=== PATIENT | male | born 1990 | race Caucasian/White ===

== ENCOUNTER 2021-09-26 08:43 | Emergency (ER) | payer OTHER ==
[~2021-09-26 08:43] MED LIST: BACLOFEN 10MG T10 MG PO; COLCRYS0.6 MG PO; FLEXERIL10 MG PO; KEFLEX500 MG PO; MEDROL 4MG DOSEP4 MG PO; NAPROXEN500 MG PO; NORCO 5-325 TA1 EACH PO; NORCO 7.5-3251 EACH PO; PREDNISONE 20MG20 MG PO
[2021-09-26 09:11] LABS: BASOPHIL 1.9 % (0-2); HCT 45.1 % (42.0-52.0); HGB 15.5 g/dl (13.2-18.0); LYMPHOCYTE 31.8 % (15-48); MCH 33.1 pg (25.0-31.0); MCHC 34.4 g/dL (32.0-36.0); MCV 96.4 fL (78.0-100.0); MONOCYTE 8.8 % (0-12); MPV 9.6 fL (6.0-9.5); NRBC 0; PLT 273 K/uL (150-400); RBC 4.68 M/uL (4.70-6.00); RDW 12.1 % (11.5-14.0); WBC 8.8 K/uL (4.0-10.5)
[2021-09-26 09:22] LABS: BILIRUBIN NEGATIVE (NEGATIVE); BLOOD NEGATIVE Ery/uL (NEGATIVE); CLARITY CLEAR (CLEAR); COLOR YELLOW (YELLOW); GLUCOSE (U) NORMAL (NORMAL); LEUKOCYTES NEGATIVE Leu/uL (NEGATIVE); NITRITE NEGATIVE (NEGATIVE); PROTEIN NEGATIVE (NEGATIVE); UROBILINOGEN 0.2 mg/dL (0.2-1.0)
[2021-09-26 09:25] LABS: AMPHETAMINES NEGATIVE (NEGATIVE); BARBITURATES NEGATIVE (NEGATIVE); ECSTASY (MDMA) NEGATIVE (NEGATIVE); MARIJUANA (THC) NEGATIVE (NEGATIVE); METHADONE NEGATIVE (NEGATIVE); OPIATES NEGATIVE (NEGATIVE); OXYCODONE NEGATIVE (NEGATIVE)
[2021-09-26 09:37] LABS: ALBUMIN 3.6 g/dL (3.4-5.0); BILIRUBIN - TOTAL 0.5 mg/dL (0.2-1.0); BUN/CREAT RATIO (CALC) 17.9 RATIO; CREATININE 0.84 mg/dL (0.67-1.17); POTASSIUM 4.2 mmol/L (3.5-5.1); TOTAL PROTEIN 7.6 g/dL (6.4-8.2)
[2021-09-26 10:03] LABS: CORONAVIRUS 2019 SARS-COV-2 NEGATIVE (NEGATIVE); INFLUENZA A NAA NEGATIVE (NEGATIVE)
[2021-09-26] MEDS ORDERED: OMEPRAZOLE40 MG PO (10:59)
[2021-09-26] MEDS ORDERED: CARAFATE1 GM PO (10:59)
== END 2021-09-26 11:15 | disposition home or self-care (01) ==
LOC: FER 08:43
PROVIDERS: Internal Medicine
DX: R07.89 Other chest pain (principal); R10.13 Epigastric pain; J45.909 Unspecified asthma, uncomplicated; F17.210 Nicotine dependence, cigarettes, uncomplicated; Z20.822 Contact with and (suspected) exposure to COVID-19
CPT/HCPCS: 36415; 71275; 80053; 80305; 81003; 83690; 84145; 84484; 85025; 93005; Q9967; U0002

== ENCOUNTER 2021-12-04 14:36 | Emergency (ER) | payer OTHER ==
[~2021-12-04 14:36] MED LIST changes: +CARAFATE1 GM PO; +OMEPRAZOLE40 MG PO
[2021-12-04] MEDS ORDERED: NAPROXEN500 MG PO (15:50)
== END 2021-12-04 17:05 | disposition home or self-care (01) ==
LOC: FER 14:36
DX: M54.41 Lumbago with sciatica, right side (principal); F17.210 Nicotine dependence, cigarettes, uncomplicated
CPT/HCPCS: 96372; 99283; J1100; J1885